=== PATIENT | female | born 1945 | race Hispanic/Latino ===

== ENCOUNTER → 2020-02-10 | Outpatient (CLI) | payer MEDICARE ==
[~2020-02-10] MED LIST: REGADENOSON 0.4 MG/5 ML SYR IV ONE
--- NOTE | 2020-02-14 13:15 | Myoview Stress Test ---
DATE OF STUDY: 02/10/2020 09:59:00 Stress Test - Treadmill ONLY PROCEDURE PERFORMED: Lexiscan nuclear stress test. INDICATION: Coronary artery disease, angina. TECHNIQUE: The patient was stressed using 1 minute intravenous infusion of Lexiscan. Rest and stress Myoview imaging was obtained. FINDINGS: Rest and stress images are normal with normal contractility of the left ventricle. CONCLUSIONS: 1. Normal Lexiscan nuclear stress test without evidence of ischemia or infarction. 2. Left ventricular ejection fraction is 66%. MD DUKE Laird/MODL /[id number]
== END ==
LOC: NM 09:37
PROVIDERS: ATTEND Internal Medicine
DX: R07.9 Chest pain, unspecified (principal)
CPT/HCPCS: 78452; 93017; 93306; A9502; J2785

== ENCOUNTER → 2020-07-05 | Day surgery (SDC) | payer MEDICARE ==
[2020-07-02 09:19] LABS: BASOPHILS % 0.6 % (0.0-1.0); EOSINOPHILS # (AUTO) 0.3 (0.0-0.4); EOSINOPHILS % 4.3 % (0.0-6.0); HEMATOCRIT 42.5 % (34.2-44.1); HEMOGLOBIN 13.8 g/dL (12.0-16.0); LYMPHOCYTES # (AUTO) 2.5 (1.0-3.2); LYMPHOCYTES % 36.8 % (18.0-39.1); MEAN CORPUSCULAR HEMOGLOBIN 30.6 pg (28-32); MEAN CORPUSCULAR HGB CONC 32.5 g/dL (31-35); MEAN CORPUSCULAR VOLUME 94.2 fL (81-99); MONOCYTES # (AUTO) 0.4 (0.2-0.8); MONOCYTES % 5.9 % (4.4-11.3); NEUTROPHILS # (AUTO) 3.5 (2.1-6.9); NEUTROPHILS % 52.1 % (38.7-80.0); PLATELET COUNT 177 x10e3/uL (140-360); RED BLOOD COUNT 4.51 x10e6/uL (3.6-5.1); RED CELL DISTRIBUTION WIDTH 13.5 % (11.7-14.4)
[~2020-07-05] MED LIST changes: +CARDIZEM CD120 MG PO; +CLINDAMYCIN HC150 MG PO; +CRESTOR10 MG PO; +LIDOCAINE HCL 2% LOCAL INJ 5 ML SDV VIAL INJ ONE; +PROPOFOL IV EMULSION 10 MG/ML 20 ML VIAL ONE; -REGADENOSON 0.4 MG/5 ML SYR IV ONE; +SERTRALINE HCL100 MG PO; +XARELTO10 MG PO; +[UNRECOGNIZED DRUG - OTHER] PO
[2020-07-05 08:46] VITALS: BP 145/85
== END | disposition home or self-care (01) ==
LOC: OR 06:12
PROVIDERS: ATTEND Internal Medicine Gastroenterology
DX: R19.7 Diarrhea, unspecified (principal); D12.5 Benign neoplasm of sigmoid colon; K57.30 Diverticulosis of large intestine without perforation or abscess without bleeding; K64.8 Other hemorrhoids; K21.9 Gastro-esophageal reflux disease without esophagitis; Z71.3 Dietary counseling and surveillance; I48.91 Unspecified atrial fibrillation; I10 Essential (primary) hypertension; E66.9 Obesity, unspecified; F32.9 Major depressive disorder, single episode, unspecified; Z01.810 Encounter for preprocedural cardiovascular examination; Z01.812 Encounter for preprocedural laboratory examination; Z20.822 Contact with and (suspected) exposure to COVID-19; Z79.02 Long term (current) use of antithrombotics/antiplatelets; Z68.32 Body mass index [BMI] 32.0-32.9, adult; Z85.3 Personal history of malignant neoplasm of breast
CPT/HCPCS: 36415; 45380; 85025; 93005; J2001; J2704; U0002; 45378

== ENCOUNTER → 2022-11-04 | Outpatient (CLI) | payer MEDICARE ==
[~2022-11-04] MED LIST changes: -LIDOCAINE HCL 2% LOCAL INJ 5 ML SDV VIAL INJ ONE; -PROPOFOL IV EMULSION 10 MG/ML 20 ML VIAL ONE; +REGADENOSON 0.4 MG/5 ML SYR IV ONE
== END ==
LOC: NM 08:59
PROVIDERS: ATTEND Internal Medicine
DX: R07.9 Chest pain, unspecified (principal)
CPT/HCPCS: 78452; 93017; 93306; A9502; J2785